=== PATIENT | male | born 1935 | race African-American/Black ===

== ENCOUNTER → 2018-03-28 | Outpatient (CLI) | payer MEDICARE ==
[~2018-03-28] MED LIST: DIATRIZOATE MEGLU/SOD 660/100 MG/ML 120 ML BOTTLE ONE; LIDOCAINE HCL/PF 1% 5 ML VIAL ONE
== END | disposition home or self-care (01) ==
LOC: RADMN 12:29
PROVIDERS: ATTEND Hospitalist
DX: K94.29 Other complications of gastrostomy (principal); I69.391 Dysphagia following cerebral infarction; M62.81 Muscle weakness (generalized)
CPT/HCPCS: 49450; C1769; J3490; Q9963; 36245; 76000

== ENCOUNTER 2020-11-01 20:06 | Emergency (ER) | payer MEDICARE, OTHER ==
[~2020-11-01] VITALS: Ht 170.2 cm; Wt 104.5 kg
[2020-11-01 20:23] VITALS: BP 149/84
[2020-11-01] MEDS ORDERED: ACETAMINOPHEN 1000 MG/ISO-OSM 100 ML IV ONE (20:45)
[2020-11-01] MEDS ORDERED: SODIUM CHLORIDE 0.9% 1,000 ML IV ONE (20:45)
[2020-11-01] MEDS ORDERED: CARV6.2534 PO (20:58)
[2020-11-01] MEDS ORDERED: IPRNEB IH (20:58)
[2020-11-01] MEDS ORDERED: ATOR40TA28 PO (20:58)
[2020-11-01] MEDS ORDERED: ASPI81TA39 PO (20:58)
[2020-11-01] MEDS ORDERED: FAMO20 PO (20:58)
[2020-11-01 21:44] LABS: COVID AG,FIA SOURCE NASOPHARYNGEAL
== END 2020-11-02 01:28 ==
LOC: EMS 20:06
DX: U07.1 COVID-19 (principal); I46.9 Cardiac arrest, cause unspecified; I10 Essential (primary) hypertension; J45.909 Unspecified asthma, uncomplicated; Z79.82 Long term (current) use of aspirin; Z79.899 Other long term (current) drug therapy
CPT/HCPCS: 71045; 87426; 93005; 99291; U0003; 51702